=== PATIENT | male | born 1990 | race Caucasian/White ===

== ENCOUNTER 2018-10-24 19:38 | Emergency (ER) | payer OTHER ==
[~2018-10-24] VITALS: Ht 175.3 cm; Wt 90.7 kg
[~2018-10-24 19:38] MED LIST: ALBUTEROL INHAL17 GM IH; ALBUTEROL2.5 MG/0.1 INH; ALPRAZOLAM 0.0.25 MG PO; ALPRAZOLAM ER1 MG PO; ATIVAN0.5 MG PO; AZITHROMYCIN 2250 MG PO; BACTRIM DS TAB1 EACH PO; BACTROBAN CREAM30 G1 TOP; BUSPAR 5 MG TABL5 M1; CLONAZEPAM 1 MG1 M1 PO; FLOVENT HFA 2220 MC1 IH; HYDROCODON-ACE1 EAC7 PO; HYDROXYZINE HCL25 M1; IBUPROFEN 800800 MG PO; MEDROL DOSPAK21 TA1 PO; MEDROL DOSPAK21 TAB PO; NOHOMEMEDICATIONS; ONDANSETRON HCL4 M2 PO; PAXIL20 MG; PROAIR RESPICL90 MCG IH; PROPRANOLOL 20M20 M1 PO; PROZAC20 MG; TESSALON PERLE100 MG PO; TRAMADOL 50 MG50 MG PO; ULTRAM 50MG TAB50 MG PO; XANAX 0.25 MG0.25 MG; XANAX 0.5 MG0.5 M1 PO; XANAX 1 MG TABLE1 MG PO; XANAX1 MG; ZANAFLEX4 MG PO
[2018-10-24 20:40] LABS: ABSOLUTE BASOPHILS 0.1 thou/uL (0.0-0.2); ABSOLUTE EOSINOPHILS 0.2 thou/uL (0.0-0.7); ABSOLUTE LYMPHOCYTES 1.1 thou/uL (0.8-5.3); ABSOLUTE MONOCYTES 0.7 thou/uL (0.0-1.2); BASOPHILS 0.8 %; EOSINOPHILS 3.2 %; HEMATOCRIT 46.6 % (42.0-52.0); HEMOGLOBIN 16.2 gm/dL (14.0-18.0); LYMPHOCYTES 16.2 %; MCH 30.7 pg (26.0-34.0); MCHC 34.8 g/dL (28.0-37.0); MPV 9.3 fl. (7.2-11.1); NUCLEATED RBCS 0 /100WBC; PLATELET COUNT* 200 thou/uL (150-400); POLYS 69.8 %; RDW-CV 13.9 % (10.5-14.5); WBC 7.1 thou/uL (4.0-11.0)
[2018-10-24 20:49] LABS: CALCIUM 9.1 mg/dL (8.5-10.1); CREATININE 0.9 mg/dL (0.6-1.3)
[2018-10-24 20:53] LABS: ALBUMIN 4.1 g/dL (3.4-5.0); TOTAL PROTEIN 7.4 g/dL (6.4-8.2)
[2018-10-24 22:34] VITALS: BP 140/100
== END 2018-10-24 22:40 | disposition left against medical advice (07) ==
LOC: M.ERS 19:38
PROVIDERS: Emergency Medicine
DX: R50.9 Fever, unspecified (principal); R51 Headache; J45.909 Unspecified asthma, uncomplicated; F41.9 Anxiety disorder, unspecified; R19.7 Diarrhea, unspecified; F17.210 Nicotine dependence, cigarettes, uncomplicated; Z88.6 Allergy status to analgesic agent

== ENCOUNTER 2020-06-15 13:45 | Emergency (ER) | payer MEDICAID ==
[~2020-06-15] VITALS: Ht 175.3 cm; Wt 91.6 kg
[2020-06-15 14:26] LABS: HEMATOCRIT 44.5 % (42.0-52.0); HEMOGLOBIN 15.6 gm/dL (14.0-18.0); MCH 31.3 pg (26.0-34.0); MCHC 35.1 g/dL (28.0-37.0); MCV 89.1 fL (80.0-100.0); MPV 8.6 fl. (7.2-11.1); NUCLEATED RBCS 0 /100WBC; PLATELET COUNT* 214 thou/uL (150-400); RBC 4.99 mil/uL (4.50-6.00); RDW-CV 13.5 % (10.5-14.5); WBC 12.6 thou/uL (4.0-11.0)
[2020-06-15 14:34] LABS: CALCIUM 8.9 mg/dL (8.5-10.1); CREATININE 1.1 mg/dL (0.6-1.3); POTASSIUM 3.9 mmol/L (3.5-5.1)
[2020-06-15 14:43] LABS: ALBUMIN 4.3 g/dL (3.4-5.0); MAGNESIUM 1.7 mg/dL (1.8-2.4); TOTAL BILIRUBIN 0.7 mg/dL (<0.1-1.0); TOTAL PROTEIN 7.3 g/dL (6.4-8.2)
[2020-06-15] MEDS ORDERED: IBUPROFEN 800800 M1 PO (15:21)
[2020-06-15 15:22] LABS: ABSOLUTE LYMPHOCYTES 0.6 thou/uL (0.8-5.3); ABSOLUTE MONOCYTES 0.4 thou/uL (0.0-1.2); ABSOLUTE NEUTROPHILS 11.6 thou/uL (1.6-8.1); PLATELET ESTIMATE ADEQUATE
[2020-06-15 15:39] VITALS: BP 114/78
--- NOTE | 2020-06-16 10:59 | EKG ---
[place] [address] ELECTROCARDIOGRAM REPORT Name: JERROD GREENBERG Room: [facility]#: [id number] Admission: 06/15/20 Attend Phys: Discharge: 06/15/20 Date of : 89 Date of Service: 06/15/20 1349 Report #: [id number] THIS REPORT FOR: //name// [facility] ED Test Date: 2020-06-15 Test Time: 13:49:32 Pat Name: JERROD GREENBERG Department: Room: Gender: Manager Transplant: [facility] : 1990 Requested By: Primitivo Mckinley Order Number: [id number] MD: Mykel Fischer Measurements Intervals [place] Rate: 75 P: -8 TN: 125 QRS: 37 QRSD: 99 T: 32 QT: 366 QTc: 409 Interpretive Statements Sinus rhythm RSR' in V1 or V2, right VCD Compared to ECG 10/15/2016 07:35:20 Minor IVCD right is noted Electronically Signed On 06-16-2020 10:59:11 CDT by Mykel Fischer [email or web address] <ELECTRONICALLY SIGNED> By: Mykel Fischer MD, [facility] 06/16/20 1059 1349 1349 Mykel Fischer MD, [facility] /EPI
== END 2020-06-15 15:40 | disposition home or self-care (01) ==
LOC: M.ERS 13:45
PROVIDERS: Emergency Medicine Emergency Medical Services
DX: R07.89 Other chest pain (principal); J45.909 Unspecified asthma, uncomplicated; F17.210 Nicotine dependence, cigarettes, uncomplicated; Z88.6 Allergy status to analgesic agent